=== PATIENT | female | born 2000 | race Two or more races ===

== ENCOUNTER 2022-12-05 11:27 | Emergency (ER) | payer MEDICAID ==
[~2022-12-05] VITALS: Ht 152.4 cm; Wt 93.3 kg
[2022-12-05 12:54] VITALS: BP 134/62; PULSE 97; RESP 16; TEMP 97.7; O2SAT 98
== END 2022-12-05 14:06 | disposition home or self-care (01) ==
LOC: ER 11:27
DX: S80.02XA Contusion of left knee, initial encounter (principal); S80.01XA Contusion of right knee, initial encounter; O26.892 Other specified pregnancy related conditions, second trimester; Z3A.20 20 weeks gestation of pregnancy; W01.0XXA Fall on same level from slipping, tripping and stumbling without subsequent striking against object, initial encounter; Y93.89 Activity, other specified; Y92.89 Other specified places as the place of occurrence of the external cause; Y99.8 Other external cause status

== ENCOUNTER 2023-04-10 16:48 | Inpatient (IN) | payer MEDICAID ==
[~2023-04-10] VITALS: Ht 152.4 cm; Wt 101.6 kg
[2023-04-10] MEDS ORDERED: LACTATED RINGER'S 1,000 ML IV ONE ×2 (17:30)
[2023-04-10] MEDS: LACTATED RINGER'S 1,000 ML IV SCH (17:52)
[2023-04-10 18:19] LABS: Basophils # (auto) 0 10 ^3/uL (0-0.2); Basophils % (auto) 0.2 % (0.0-2.0); Eosinophils # (auto) 0 10 ^3/uL (0-0.8); Eosinophils % (auto) 0.1 % (0.0-7.0); Hematocrit 36.7 % (36.0-46.0); Hemoglobin 12.1 g/dL (12.2-16.2); Lymphocytes # (auto) 2.2 10 ^3/uL (0.4-5.4); Lymphocytes % (auto) 19.7 % (10.0-50.0); Mean Corpuscular Hemoglobin 27.5 pg (28.0-32.0); Mean Corpuscular Volume 83.4 fL (80.0-100.0); Monocytes # (auto) 0.6 10 ^3/uL (0-1.3); Monocytes % (auto) 5.3 % (0.0-12.0); Neutrophils # (auto) 8.5 10 ^3/uL (1.6-8.6); Neutrophils % (auto) 74.7 % (37.0-80.0); Nucleated Red Blood Cells % 0.1 %; Red Blood Cells 4.41 10^6/uL (4.0-5.20); White Blood Cell 11.4 10^3/uL (4.4-10.8)
[2023-04-10 18:25] LABS: Urine Bacteria NONE SEEN /hpf (None Seen); Urine Blood Negative /uL (Negative); Urine Clarity HAZY (Clear); Urine Color Yellow (Yellow); Urine Mucus FEW (None Seen); Urine Protein, UAD 3+ (Negative); Urine WBC 35 /hpf (0 - 5); Urine pH 6.5 (5.0-8.0)
[2023-04-10 18:35] LABS: INR 0.92 (0.9-1.15); Partial Thromboplastin Time 27.3 SEC (24.5-34.5); Prothrombin Time 9.7 sec (9.3-11.8)
[2023-04-10 18:36] LABS: Amphetamine Screen, Urine Neg (NEGATIVE); Barbiturate Scree,Urine Neg (NEGATIVE); Benzodiazephine Screen, Urine Neg (NEGATIVE)
[2023-04-10 18:37] LABS: Cannabinoid Screen, Urine Neg (NEGATIVE); Cocaine Screen, Urine Neg (NEGATIVE); Opiate Scree,Urine Neg (NEGATIVE); Phencyclidine Screen, Urine Neg (NEGATIVE)
[2023-04-10 18:39] LABS: Albumin 3.7 g/dL (3.2-4.8); Alkaline Phosphatase 144 U/L (46-116); Anion Gap 7 (5-15); Aspartate Aminotransferase 12 U/L (13-40); BUN/Creatinine Ratio 9.4 (10.0-20.0); Bilirubin, Total 0.4 mg/dL (0.2-1.0); Blood Urea Nitrogen 6 mg/dL (9-23); Carbon Dioxide 21 mmol/L (20-30); Chloride 107 mmol/L (98-107); Glucose 105 mg/dL (74-106); Sodium 135 mmol/L (136-145); Total Protein 6.3 g/dL (5.7-8.2); Uric Acid 4.6 mg/dL (3.1-7.8)
[2023-04-10 18:40] LABS: Protein, Urine 359.9 mg/dL (0.0-11.9)
[2023-04-10 18:46] LABS: Creatinine, Urine 329.77 mg/dL (30.0-125.0); Urine Protein/Creatinine Ratio 1.09
[2023-04-10 18:49] LABS: Alanine Aminotransferase < 9 U/L (7-40)
[2023-04-10] MEDS ORDERED: BUTORPHANOL TARTRATE 2 MG/1 ML VIAL IV PRN ×2 (19:30)
[2023-04-10] MEDS ORDERED: LIDOCAINE 2%HCL (LOCAL ANESTH.) INJ 20ML MDV IJ PRN (19:30)
[2023-04-10] MEDS ORDERED: PHISODERM TOP SOLN 240ML BTL TOP PRN (19:30)
[2023-04-10] MEDS: LACT. RINGERS/OXYTOCIN 20UNITS 500 ML IV ONE ×2 (19:30→20:00)
[2023-04-10] MEDS ORDERED: PROMETHAZINE HCL 25 MG/ML 1ML IV PRN (19:30)
[2023-04-10] MEDS ORDERED: WITCH HAZEL-GLYCERIN PAD TOP PRN (19:30)
[2023-04-10] MEDS ORDERED: DERMOPLAST 60ML BOTTLE TOP PRN (19:30)
[2023-04-10] MEDS: miSOPROStol 50 MCG per PRE-CUT 1/2 TAB PO PRN (20:30)
[2023-04-10] MEDS ORDERED: hydrALAZINE HCL 20 MG/ML VL IV PRN (23:00)
[2023-04-11] MEDS: LACTATED RINGER'S 1,000 ML IV SCH (02:26)
[2023-04-11] MEDS: PENICILLIN G POT 5MIL/D5 50ML 50 ML IV ONE (12:32)
[2023-04-11] MEDS: ROPIVACAINE 0.5% (5MG/ML) 20ML AMPULE IJ ONE (13:15)
[2023-04-11] MEDS ORDERED: ePHEDrine SULFATE 50 MG/ML AMP IV ONE (13:15)
[2023-04-11] MEDS: ROPIVACAINE HCL 200 ML ONE (14:16)
[2023-04-11] MEDS: LACT. RINGERS/OXYTOCIN 20UNITS 1,000 ML IV SCH (14:47)
[2023-04-11] MEDS ORDERED: LIDOCAINE HCL 2 %PF INJ 10ML AMP IJ ONE (15:00)
[2023-04-11] MEDS: LIDOCAINE HCL 2 %PF INJ 10ML AMP IJ ONE (15:12)
[2023-04-11] MEDS: fentaNYL CITRATE 100 MCG/2 ML VL IV ONE (15:41)
[2023-04-11] MEDS ORDERED: diphenhdrAMINE HCL 50 MG/1 ML VL IV PRN (16:00)
[2023-04-11] MEDS: FAMOTIDINE (10MG/ML) 2ML VL IV PRN (16:08)
[2023-04-11] MEDS: PENICILLIN G POTASSIUM 2,500,000 UNITS in D5W 5% 50 ML IV SCH (17:14)
[2023-04-11 18:48] VITALS: BP 140/76; PULSE 75
[2023-04-11] MEDS: ONDANSETRON HCL 4 MG/2 ML VIAL IV PRN (19:25)
[2023-04-12] VITALS (17 sets, daily range): BP systolic 134–162; BP diastolic 74–105; PULSE 75–108; RESP 14–20; TEMP 97.8–98; O2SAT 96–100
[2023-04-12] MEDS ORDERED: fentaNYL CITRATE 100 MCG/2 ML VL ONE ×2 (01:23→07:49)
[2023-04-12] MEDS: fentaNYL CITRATE 100 MCG/2 ML VL ONE (02:07)
[2023-04-12] MEDS ORDERED: LACTATED RINGER'S 1,000 ML IV ONE (03:45)
[2023-04-12] MEDS ORDERED: LACTATED RINGER'S 1,000 ML IV SCH (03:45)
[2023-04-12] MEDS: ROPIVACAINE HCL 200 ML ONE (03:56)
[2023-04-12] MEDS ORDERED: ceFAZolin 1GM/50ML 50 ML IV ONE (04:15)
[2023-04-12] MEDS: ceFAZolin 2 GM/D5W100ml 100 ML IV ONE (07:49)
[2023-04-12] MEDS ORDERED: MORPHINE SULF PF 5 MG/10 ML VIAL ONE (07:49)
[2023-04-12] MEDS ORDERED: DexAMETHasone SOD PHOS 10MG/1ML VIAL INJ ONE (07:51)
[2023-04-12] MEDS ORDERED: KETOROLAC TROMETH 30 MG/ML 1ML VIAL ONE (07:51)
[2023-04-12] MEDS ORDERED: oxyTOCIN 10 UNIT/ML 10ML VIAL ONE (07:51)
[2023-04-12] MEDS ORDERED: ONDANSETRON HCL 4 MG/2 ML VIAL ONE (07:51)
[2023-04-12] MEDS ORDERED: PHENYLEPHRINE HCL 10 MG/ML VL ONE (08:48)
[2023-04-12] MEDS ORDERED: SODIUM CHLORIDE LOCK 10 ML ONE (08:48)
[2023-04-12] MEDS: ONDANSETRON HCL 4 MG/2 ML VIAL ONE (09:59)
[2023-04-12] MEDS ORDERED: NALBUPHINE HCL 10 MG/1ml INJECTION IV ONE (10:00)
[2023-04-12] MEDS ORDERED: LACT. RINGERS/OXYTOCIN 20UNITS 1,000 ML IV SCH (10:00)
[2023-04-12] MEDS ORDERED: HYDROmorphone HCL 2 MG/ML VL/or syr IV PRN (10:00)
[2023-04-12] MEDS ORDERED: NALOXONE HCL 0.4 MG/ML VIAL IV PRN (10:00)
[2023-04-12] MEDS ORDERED: diphenhdrAMINE HCL 50 MG/1 ML VL IV PRN (10:00)
[2023-04-12] MEDS ORDERED: ONDANSETRON HCL 4 MG/2 ML VIAL IV PRN ×2 (10:00)
[2023-04-12] MEDS ORDERED: SUGAMMADEX 200mg/2ml Vial (100MG/ML) IV ONE (11:02)
[2023-04-12] MEDS ORDERED: ePHEDrine SULFATE 50 MG/ML AMP ONE (11:15)
[2023-04-12 12:06] LABS: RPR Non Reactive (Non Reactive)
[2023-04-12] MEDS: KETOROLAC TROMETH 30 MG/ML 1ML VIAL IV PRN (13:33)
[2023-04-12] MEDS ORDERED: PROPOFOL 10 MG/ML 20 ML IV ONE (14:26)
[2023-04-12] MEDS: ceFAZolin 1GM/50ML 50 ML IV SCH (17:32)
[2023-04-13] VITALS (19 sets, daily range): BP systolic 111–139; BP diastolic 55–101; PULSE 77–95; RESP 14–20; TEMP 97.5–98.5; O2SAT 92–100
[2023-04-13 06:57] LABS: Basophils # (auto) 0 10 ^3/uL (0-0.2); Basophils % (auto) 0.2 % (0.0-2.0); Eosinophils # (auto) 0 10 ^3/uL (0-0.8); Eosinophils % (auto) 0.1 % (0.0-7.0); Hematocrit 34.6 % (36.0-46.0); Hemoglobin 11.1 g/dL (12.2-16.2); Lymphocytes # (auto) 3.6 10 ^3/uL (0.4-5.4); Lymphocytes % (auto) 20.3 % (10.0-50.0); Mean Corpuscular Hemoglobin 27.2 pg (28.0-32.0); Mean Corpuscular Hgb Conc. 32.1 g/dL (32.0-36.0); Monocytes # (auto) 1.1 10 ^3/uL (0-1.3); Monocytes % (auto) 6.1 % (0.0-12.0); Neutrophils # (auto) 13.1 10 ^3/uL (1.6-8.6); Neutrophils % (auto) 73.3 % (37.0-80.0); Red Blood Cells 4.07 10^6/uL (4.0-5.20); White Blood Cell 17.9 10^3/uL (4.4-10.8)
[2023-04-13 07:07] LABS: Albumin 3.4 g/dL (3.2-4.8); Alkaline Phosphatase 125 U/L (46-116); Anion Gap 8 (5-15); Aspartate Aminotransferase 22 U/L (13-40); BUN/Creatinine Ratio 8.1 (10.0-20.0); Bilirubin, Total 0.3 mg/dL (0.2-1.0); Blood Urea Nitrogen 6 mg/dL (9-23); Calcium 9.3 mg/dL (8.5-10.1); Carbon Dioxide 22 mmol/L (20-30); Chloride 109 mmol/L (98-107); Glucose 83 mg/dL (74-106); Potassium 3.9 mmol/L (3.5-5.1); Sodium 139 mmol/L (136-145); Total Protein 6.1 g/dL (5.7-8.2)
[2023-04-13 07:12] LABS: Alanine Aminotransferase < 9 U/L (7-40)
[2023-04-13] MEDS: ceFAZolin 1GM/50ML 50 ML IV ONE (10:39)
[2023-04-13] MEDS ORDERED: BISACODYL 10 MG RECT SUPP PR PRN (11:15)
[2023-04-13] MEDS ORDERED: SIMETHICONE 80 MG CHEWABLE TABLET PO PRN (11:15)
[2023-04-13] MEDS: IBUPROFEN 800 MG TAB PO PRN (12:18)
[2023-04-13 19:07] LABS: Treponema pallidum Ab (FTA-Ab) Non Reactive (Non Reactive)
[2023-04-13] MEDS: HYDROcodone-ACET 5/325MG TAB PO PRN (19:29)
[2023-04-13] MEDS ORDERED: HYDR-4902 PO (21:37)
[2023-04-13] MEDS ORDERED: PRENCAP11 PO (21:37)
[2023-04-13] MEDS ORDERED: DOCU-265 PO (21:37)
[2023-04-13] MEDS ORDERED: IBUP-1455 PO (21:37)
[2023-04-13] MEDS: DOCUSATE SOD 100 MG CAP PO SCH (21:53)
[2023-04-13] MEDS: TETANUS-DIPTH-ACEL PERTUSSIS 0.5ML SYR Tdap IM ONE (21:53)
[2023-04-14] MEDS: HYDROcodone-ACET 5/325MG TAB PO PRN (02:02)
[2023-04-14 03:00] VITALS: BP 136/79; PULSE 77; RESP 16; TEMP 98; O2SAT 96
[2023-04-14 07:00] VITALS: BP 132/77; PULSE 83; RESP 16; TEMP 98.2; O2SAT 97
[2023-04-14] MEDS ORDERED: DOCUSATE CALCIUM 240 MG CAP PO SCH (10:00)
[2023-04-14 11:00] VITALS: BP 122/74; PULSE 84; RESP 18; TEMP 98.3; O2SAT 98
== END 2023-04-14 11:58 | disposition home or self-care (01) | DRG 540 ==
LOC: LDRP 16:48 → OBSVTOIN 19:25 → LDRP 19:26
PROVIDERS: ADMIT Obstetrics & Gynecology; ATTEND Obstetrics & Gynecology
PROC: 10D00Z1 Extraction of Products of Conception, Low, Open Approach (ICD-10-PCS; principal; 2023-04-12 08:23)
DX: O14.04 Mild to moderate pre-eclampsia, complicating childbirth (principal); O24.420 Gestational diabetes mellitus in childbirth, diet controlled; E16.2 Hypoglycemia, unspecified; E66.01 Morbid (severe) obesity due to excess calories; O99.824 Streptococcus B carrier state complicating childbirth; O99.214 Obesity complicating childbirth; O61.9 Failed induction of labor, unspecified; O62.0 Primary inadequate contractions; O69.81X0 Labor and delivery complicated by cord around neck, without compression, not applicable or unspecified; O99.284 Endocrine, nutritional and metabolic diseases complicating childbirth; Z83.3 Family history of diabetes mellitus; Z37.0 Single live birth; Z3A.38 38 weeks gestation of pregnancy
CPT/HCPCS: 36415; 59025; 62282; 76818; 80053; 80307; 81001; 81002; 82570; 82948; 82962; 84156; 84550; 85025; 85379; 85610; 85730; 86592; 86850; 86900; 86901; 90715; 94760; 94762; 96360; 96361; 96372; 96374; 96375; G0378; J1100; J1885; J2405; J2540; J2590; J2704; J3490; J7060